=== PATIENT | female | born 1970 | race Caucasian/White ===

== ENCOUNTER 2018-01-01 10:02 | Emergency (ER) | payer SELFPAY ==
[~2018-01-01] VITALS: Ht 165.1 cm; Wt 79.5 kg
[2018-01-01 10:06] VITALS: BP 137/93; PULSE 70; TEMP 97.9
== END 2018-01-01 11:09 | disposition home or self-care (01) ==
LOC: COL.ER 10:02
DX: R21 Rash and other nonspecific skin eruption (principal); F17.210 Nicotine dependence, cigarettes, uncomplicated
CPT/HCPCS: J1100